=== PATIENT | male | born 1960 | race Caucasian/White ===

== ENCOUNTER 2018-10-23 10:25 | Inpatient (IN) | payer BC ==
[~2018-10-23] VITALS: Ht 175.3 cm; Wt 86.4 kg
[2018-12-04] VITALS (11 sets, daily range): BP systolic 124–150; BP diastolic 74–88; PULSE 72–101; TEMP 97.2–98.7
[2018-12-04] MEDS ORDERED: PREVACID 30MG30 M1 PO (06:01)
[2018-12-04] MEDS ORDERED: LIPITOR 10MG10 MG PO (06:01)
[2018-12-04] MEDS ORDERED: FLOMAX 0.40.4 MG/CAP PO (06:01)
--- NOTE | 2018-12-04 06:26 | NUR ---
Patient arrives to [facility] [place] [facility] for pre-op admission. He ambulates with steady gait. He is alert and oriented. He is accompanied by his , Vandana. Procedure confirmed, denies any questions, and verbalizes understanding. VSS and WNL on room air. Patient changes to gown independently. PIV started in left wrist with x1 attempt and without complication. Given warm blanket. Breath sounds clear bilaterally to auscultation. Clear S1S2 heart tones heard with regular rate noted. Bowel sounds active and audible x4 quadrants. Abdomen is soft/nontender. +2 radial, DP and PT pulses palpable. Equal and strong pedal and hand strengths. PERRLA noted. Denies any pain, numbness, or tingling. Call light usage taught and within reach. at the bedside. Will continue to monitor.
--- NOTE | 2018-12-04 06:45 | NUR ---
Pre-op pepcid held per pharmacy's recommendations for cross-allergy to zantac. SUPERVISOR SPINNINGAlphonso notified.
--- NOTE | 2018-12-04 07:00 | NUR ---
Patient to OR at this time with FL[facility]ENILLER Radhika.
--- NOTE | 2018-12-04 07:01 | NUR ---
Patient belongings bag x1, labeled with patient sticker, taken to PACU at this time.
[2018-12-04 13:03] LABS: HEMATOCRIT 40.7 % (42.0-52.0); HEMOGLOBIN 13.9 g/dl (13.5-18.0)
--- NOTE | 2018-12-04 17:30 | NUR ---
Patient alert and oriented, answers questions appropriately. See assessment. Abdomen soft, non tender, non distended. Bowel sounds absent x4 quads. No flatus. Lap sites with edges well approximated, no redness or drainage noted. Estrada catheter patent and draining clear alessandro urine. No c/o at this time.
--- NOTE | 2018-12-04 20:44 | NUR ---
Pt resting in bed. HOB elevated. at bedside. No distress noted. Pt rates pain 3/10 in abdomen. he states it is "gas pain". Abdomen is distended. BS are hypoactive. Pt reports he was up ambulating earlier. Respirations even and unlabored. Lungs clear. Estrada catheter to dependent drainage- output is pale yellow with small clots. IVF infusing to LFA IV. Pt denies needs at this time. Will continue to monitor.
[2018-12-05] VITALS (7 sets, daily range): BP systolic 127–146; BP diastolic 71–86; PULSE 66–90; TEMP 97.5–98.4
[2018-12-05 06:39] LABS: BASO % 0.1 % (0.0-2.0); EOS % 0.4 % (0-4.0); GRAN # 6.5 (1.4-6.5); GRAN % 72.6 % (42.2-75.2); HEMATOCRIT 37.7 % (42.0-52.0); HEMOGLOBIN 12.9 g/dl (13.5-18.0); LYMPH # 1.5 (1.2-3.4); LYMPH % 17.2 % (20.0-51.0); MEAN CELL VOLUME 90 fl (80.0-100.0); MEAN CORPUSCULAR HEMOGLOBIN 31 pg (27.0-31.0); MEAN CORPUSCULAR HGB CONC 34 g/dl (33.0-37.0); MEAN PLATELET VOLUME 10.8 fl (7.4-10.4); MONO # 0.8 (0.1-0.6); MONO % 9.4 % (1.7-9.3); PLATELET COUNT 161 K/mm3 (130-400); RED BLOOD COUNT 4.21 M/mm3 (4.20-5.60); REDCELL DISTRIBUTION WIDTH-CV 12.9 % (11.5-14.5)
--- NOTE | 2018-12-05 06:45 | NUR ---
Pt slept well throughout the night. Pain well controlled by ERAS medications. No PRN meds required. Urinary output has been adeqaute. IVF infusing to LF IV site. No needs noted.
[2018-12-05 06:52] LABS: CALCIUM 8.3 mg/dL (8.4-10.2); CREATININE, serum 0.87 (0.66-1.25); POTASSIUM 4.2 mmol/L (3.4-5.0)
--- NOTE | 2018-12-05 10:00 | NUR ---
Patient alert and oriented, answers questions appropriately. See assessment. Abdomen soft, non tender, non distended. Bowel sounds active x4 quads. +Flatus. Abdomen lap sites with edges well approximated, no redness or drainage noted. SLOANE drain to LLQ with scant amount of serosanguinous drainage noted. Estrada catheter patent and draining clear yellow urine. No c/o at this time.
--- NOTE | 2018-12-05 13:29 | NUR ---
Plan: To return home to [place] with Vandana . Assess: Pt reports PCP as Dr. Lonnie Scruggs in [place]. Patient uses [facility] on [address] in [place]. Patient denies the use of DME. will transport home. Patient report and DPOA. Patient denies having any additonal concerns. Action: Educated about community resources. Nothing follows/
[2018-12-06 03:53] VITALS: BP 133/80; PULSE 71; TEMP 98.2
--- NOTE | 2018-12-06 04:56 | NUR ---
RESTING QUIETLY/SLEEPING. SCHEDULED TYLENOL AND TORADOL FOR PAIN. NO N/V. CURRAN CATHETER INTACT/PATENT.
[2018-12-06 08:27] VITALS: BP 131/82; PULSE 88; TEMP 98.2
[2018-12-06 11:25] VITALS: BP 145/80; PULSE 78; TEMP 98.3
[2018-12-06 16:57] VITALS: BP 137/87; PULSE 78; TEMP 98.3
[2018-12-06 19:53] VITALS: BP 138/78; PULSE 86; TEMP 98.4
[2018-12-07 00:19] VITALS: BP 140/90; PULSE 65; TEMP 98.1
[2018-12-07 03:57] VITALS: BP 137/88; PULSE 69; TEMP 97.9
[2018-12-07 07:47] VITALS: BP 145/94; PULSE 72; TEMP 97.8
--- NOTE | 2018-12-07 08:03 | NUR ---
PATIENT ASSESSMENT COMPLETED. PATIENT ALERT AND ORIENTED AND VSS. PATIENT DENIES PAIN AT THIS TIME. PATIENT HAS DX OF RADICAL PROSTATECTOMY. PATIENT HAS 5 LAP SITES WHICH ARE ALL CLEAN AND DRY. NO SIGNS OF INFECTION. PATIENT HAS SLOANE DRAIN. PATIENT TO GO HOME WITH CURRAN. PATIENT HAS LEFT FOREARM IV INT. PATIENT MORNING MEDS GIVEN. PATIENT SITTING UP IN CHAIR. CALL LIGHT WITHIN REACH, WILL CONTINUE TO MONITOR
--- NOTE | 2018-12-07 11:50 | NUR ---
PATIENT DISCHARGE INSTRUCTIONS GIVEN. PATIENT INSRUCTION GIVEN ON CURRAN CATHETER CARE AND BAG CHANGE. ALL QUESTIONS ASKED AND ANSWERED. IV D/C. LAP SITES CLEAN DRY AND INTACT. DRAIN INCISION SITE CLEAN. PATIENT WHEELED OUT BY NURSING STAFF.
== END 2018-12-07 11:45 | disposition home or self-care (01) | DRG 708 ==
LOC: SURG 12-04 05:35 → INPTSU 12-04 05:35 → SURG 12-04 07:30
PROVIDERS: ADMIT Urology
PROC: 07BC4ZZ Excision of Pelvis Lymphatic, Percutaneous Endoscopic Approach (ICD-10-PCS; 2018-12-04)
PROC: 8E0W4CZ Robotic Assisted Procedure of Trunk Region, Percutaneous Endoscopic Approach (ICD-10-PCS; 2018-12-04)
PROC: 0VT34ZZ Resection of Bilateral Seminal Vesicles, Percutaneous Endoscopic Approach (ICD-10-PCS; 2018-12-04)
PROC: 0VTQ4ZZ Resection of Bilateral Vas Deferens, Percutaneous Endoscopic Approach (ICD-10-PCS; 2018-12-04)
PROC: 0VT04ZZ Resection of Prostate, Percutaneous Endoscopic Approach (ICD-10-PCS; principal; 2018-12-04 07:30)
DX: C61 Malignant neoplasm of prostate (principal)
CPT/HCPCS: A9284; J0690; J1100; J1885; J2405; J2704; J3010; J7030; J7120